=== PATIENT | female | born 1935 ===

== ENCOUNTER → 2018-02-02 10:42 | Outpatient (REF) | payer MEDICARE, OTHER, SELFPAY | LOC: LAB 10:42 | PROVIDERS: PCP Student in an Organized Health Care Education/Training Program; Visit Provider Orthopaedic Surgery | DX: Z96.653 Presence of artificial knee joint, bilateral (principal) | CPT/HCPCS: 87070; 87075; 87205 ==

== ENCOUNTER → 2018-11-30 12:36 | Outpatient (ROUT) | payer MEDICARE, OTHER, SELFPAY | PROVIDERS: PCP Student in an Organized Health Care Education/Training Program; Visit Provider Orthopaedic Surgery | DX: Z96.642 Presence of left artificial hip joint (principal) | CPT/HCPCS: 87070; 87205 ==